=== PATIENT | male | born 1970 | race Caucasian/White ===

== ENCOUNTER 2020-06-26 15:50 | Outpatient (REF) | payer BC, SELFPAY ==
[2020-06-26 22:03] LABS: Calculated LDL 134 mg/dL (<100); Cholesterol 226 mg/dL (<200); HDL Cholesterol 72 mg/dL (40-60); Triglyceride 104 mg/dL (<150)
[2020-06-27 17:51] LABS: PSA, Screening 0.7 ng/mL (0.0-3.5)
== END 2020-06-26 15:51 | disposition home or self-care (01) ==
LOC: NCHCN 15:50
PROVIDERS: PCP Internal Medicine; Visit Provider Internal Medicine
DX: Z13.220 Encounter for screening for lipoid disorders (principal); Z12.5 Encounter for screening for malignant neoplasm of prostate
CPT/HCPCS: 80061; 84153

== ENCOUNTER 2021-07-02 09:31 | Outpatient (CLI) | payer BC, SELFPAY ==
--- NOTE | 2021-07-02 09:15 | DI.RAD_ITS ---
Exam(s) XR HIP LT COMPLETE AP PELVIS EXAM: XR HIP LT COMPLETE AP PELVIS CLINICAL HISTORY: left pain. TECHNIQUE: 2D digital imaging was performed. COMPARISON: No exams were available for comparison FINDINGS: Two views No evidence of fracture or dislocation. No hip joint space narrowing. Bone density normal. No osse ous lesions. Both ischial tuberosities appear unremarkable. IMPRESSION: No significant radiographic findings. DATA REPOSITORY: RADIATION DOSE DELIVERED:
== END 2021-07-02 09:32 | disposition home or self-care (01) ==
LOC: DIORS 09:31
PROVIDERS: PCP Internal Medicine; Referring Provider Internal Medicine; Visit Provider Student in an Organized Health Care Education/Training Program
DX: M79.605 Pain in left leg (principal); M25.552 Pain in left hip
CPT/HCPCS: 73502

== ENCOUNTER → 2021-10-22 01:17 | Outpatient (CLI) | payer BC, SELFPAY ==
--- NOTE | 2021-10-22 07:45 | DI.MRI_ITS ---
Exam(s) MR LOWER EXTREMITY LT WO EXAM: MR LOWER EXTREMITY LT WO CLINICAL HISTORY: Proximal hamstring rupture, ischial tuberosity to mid thigh, S76.312A. TECHNIQUE: Multiplanar multisequence MRI was performed. COMPARISON: No exams were available for comparison FINDINGS: MR examination of the thigh was performed according to the usual protocol. There is significant rima fact which degrades imaging through the plane of the conjoined tendon origin proximally. The conjoin ed tendon is not visualized clearly in its proximal extent. There is abnormal signal in the hamstrin g musculature in the distal thigh and tendons appear to terminate, although poorly visualized, at the mid thigh level. Findings are consistent with a proximal complete hamstring rupture with retraction to mid thigh level. No additional bony, tendinous, or muscular injury identified. IMPRESSION: Examination is technically limited but appears to show proximal complete hamstring rupture with retra ction into the mid thigh region. DATA REPOSITORY:
== END ==
PROVIDERS: PCP Internal Medicine; Visit Provider Student in an Organized Health Care Education/Training Program
DX: S76.312A Strain of muscle, fascia and tendon of the posterior muscle group at thigh level, left thigh, initial encounter (principal)
CPT/HCPCS: 73718

== ENCOUNTER 2022-06-16 06:48 | Day surgery (SDC) | payer BC, SELFPAY ==
[2022-06-16 06:50] VITALS: BP 121/89; PULSE 59; RESP 16; TEMP 36.2; O2SAT 98
[2022-06-16] MEDS: Lactated Ringers 1,000 ML 80 ML IV (07:21)
--- NOTE | 2022-06-16 07:42 | W.ANESPRE ---
General Info Date of Service Date Performed: 06/16/22 Height: 5 ft 10 in Weight: 83.4 kg Body Mass Index (BMI): 26.4 Surgical Procedure: Operation Date: 06/16/22 08:20 Proposed Procedure Side Surgeon p Colonoscopy Ventura Martínez MD Meds Allergies and Home Medications Allergies Allergy/AdvReac Type Severity Reaction Status Date / Time No Known Allergies Allergy Unverified 06/16/22 07:07 Home Medication Medication Instructions Recorded bisacodyl 5 mg tablet,delayed 5 mg PO ONCE colonscopy bowel prep 06/05/22 release (Dulcolax (bisacodyl)) #4 tabs polyethylene glycol 3350 17 238 g PO ONCE colonoscopy prep 06/05/22 gram/dose oral powder #238 grams Current Visit Medications: Current Medications Generic Name Dose Route Start Last Admin Trade Name Freq PRN Reason Stop Dose Admin Ringer's Solution 1,000 mls @ 80 mls/hr 06/16/22 06:00 06/16/22 07:21 IV 07/13/22 23:59 80 mls/hr INFUSION BRANDY Administration IV Miscellaneous Supplies 1 each 06/16/22 06:00 Iv Access IV 07/13/22 23:59 DIRECTED BRANDY Sodium Chloride 0 ml 06/16/22 06:00 Normal Saline Flush 10 Ml Syr IV 07/13/22 23:59 PRN PRN Sodium Chloride 0 ml 06/16/22 06:00 Normal Saline 10 Ml Vial IJ 07/13/22 23:59 DIRECTED PRN Sterile Water 0 ml 06/16/22 06:00 Water,Injection,Sterile 10 Ml Vial IJ 07/13/22 23:59 DIRECTED PRN PFSH Active Problems Active Problems: Problem Status Onset Code Complete rupture of left proximal hamstring tendon 09/19/20 S76.312A Pes anserinus bursitis of left knee M70.52 Medical History Medical History Marijuana use WILLIAM (obstructive sleep apnea) Stool guaiac positive (~10/21/21) Surgical History Surgical History History of surgery ganglion cyst removal Tobacco Smoking/Tobacco Use Status: Never Alcohol Alcohol Intake: current Alcohol intake frequency: a few times a week Substance Use Substance use: Occasionally Substance use type: marijuana Vital Signs and Lab Results Vital Signs Most Recent Vital Signs in EMR: Most Recent Vital Signs Temp Pulse Resp BP Pulse Ox 36.2 C L 59 L 16 121/89 98 06/16/22 06:50 06/16/22 06:50 06/16/22 06:50 06/16/22 06:50 06/16/22 06:50 Lab Results Blood Type / Crossmatch: No Data to Display Complete Blood Count: No Data to Display Complete Metabolic Panel: No Data to Display Liver Function Panel: No Data to Display Coagulation Panel: No Data to Display Cardiac Panel: No Data to Display Arterial Blood Gas: No Data to Display Venous Blood Gas: No Data to Display Pancreas Panel: No Data to Display Thyroid Panel: No Data to Display Infectious Disease: No Data to Display Blood Cultures: No Data to Display Toxicology Panel: No Data to Display Anesthesia Assessment and Plan Anesthesia History Personal History: No History of Anesthesia Complications Family History: No Family History of Anesthesia Complications Exercise Tolerance Exercise Tolerance: Metabolic Equivalents>4 Pertinent Negatives Pertinent Negatives: No Symptoms of GERD Cardiac & Pulmonary Exam Cardiac Exam: Normal S1/S2 Heart Sounds Pulmonary Exam: Clear Bilateral Breath Sounds Implantable Cardiac Device Does patient have a Pacemaker or an ICD?: No Airway Exam Known Difficult Airway: No Mallampati Class: 3 Mouth Opening: Normal (> 3cm) Thyromental Distance: Greater than 3 cm Neck Range of Motion: Full ROM Neck Circumference: Normal Teeth Condition: Normal Dentition ASA Classification ASA Score: ASA 1 Emergency Case?: No NPO Status NPO Status: NPO Clears >2 hours, Solids >8 hours Anesthesia Plan Resuscitation Status: Full Code Anesthesia Technique: General Anesthesia Airway Planned: Natural Airway Monitors Used: Standard Monitors Preoperative Comments:: In diagnosed but suspect WILLIAM
--- NOTE | 2022-06-16 08:04 | W.COLOREPORT ---
Date of service: 06/16/22 Time of Service: 08:04 Colonoscopy Report Procedure Description: Procedures performed: 1. Colonoscopy 2. Snare polypectomy x2 3. Fulguration/ablation/destruction of polyp x3 4. Endoscopic clip placement x5 5. Submucosal injection/tattoo Preoperative diagnosis: Screening colonoscopy Postoperative diagnosis: Surgeon: Cain Martínez Anesthesia: Negrete Indication for procedure: The patient is a 52-year-old man with no personal history of concern. He has no symptoms. He has a family history of colon cancer in an isolated grandparent. Findings: The terminal ileum was normal. In the descending colon at 45 cm was a large 2-3 cm pedunculated polyp. Hot snare was used to remove this polyp however the thickness of the stalk made it difficult to remove and the tip of the hot snare had to be used to cut the outside edges. Endoscopic clips were placed and used to approximate the mucosal defect which was left behind from the resection. The polyp was removed as a single, intact specimen. Submucosal injection was performed to tattoo the location. Another 10-12 mm sessile polyp was removed with hot snare technique from the sigmoid colon. 3 other small polyps in the rectum and sigmoid were ablated with the tip of the hot snare. No diverticular disease. No significant hemorrhoidal disease. Surveillance/follow-up recommendations: 6 months - 3 years. There is any dysplasia present in the polyp then the site should be reassessed for possible polyp regrowth in 6 months with a flexible sigmoidoscopy. As long as no dysplasia or atypia, then a repeat colonoscopy in 3 years is acceptable. If the polyp has cancer hiding in it, a follow-up discussion will be necessary to go over the risk/benefit of surgical resection. Complications: None Blood loss: Minimal Specimens:?? YES Quality of Prep:?? Excellent Procedure in detail: Written consent was obtained from the patient who was in agreement with the risks, benefits and indications of the procedure.? We went to the endoscopy suite and laid the patient in left lateral decubitus position.? Anesthesia was administered which was tolerated well.? A timeout was performed and when we are all in agreement we began the procedure. Digital rectal exam and visual examination was performed and within normal limits.? A well?lubricated colonoscope was advanced without difficulty all the way to the cecum identified by the ileocecal valve, and triangular folds and appendiceal orifice.? The ileocecal valve was briefly intubated and look normal. The scope was then slowly withdrawn.?? Retroflexion was performed in the rectum.? The findings/interventions are noted above. The scope was then removed and the patient tolerated the procedure well and was then taken back to the PACU in hemodynamically stable condition.
[2022-06-16 08:08] VITALS: BMI 26.4
--- NOTE | 2022-06-16 08:30 | BOWEL_PTH ---
PATIENT: Hever Larry LOC: [facility] U#:[id number] AGE/SX: 52/M ROOM: RE06/16/[address]: Ventura Martínez : 1970 BED: DIS: 06/16/2022 SPEC #: [id number] RECD: 06/16/22 12:41 STATUS: [facility]EENA RE #: [id number] DEANNE: 06/16/22 08:[address]: Ventura Martínez DEPT: Surgical Specimen RECD BY: Anabell Beltran ENTERED: 06/16/22 12:41 SP TYPE: Bowel OTHR DR: Car Mayer Tissues: 1 - BIOPSY BOWEL 2 - BIOPSY BOWEL Procedures: GROSS AND MICRO LEVEL 4 Comments: [id number]
[2022-06-16] MEDS: Endoscopic Tattoo 5 ML SYR IJ (09:04)
[2022-06-16 09:22] VITALS: BP 116/85; PULSE 53; RESP 16; TEMP 36; O2SAT 99
--- NOTE | 2022-06-16 09:40 | W.ANESPOSTOP ---
Postoperative Evaluation Date, Time and Location Date Performed: 06/16/22 Time Performed: : Patient Location: Day Surgery Unit Vital Signs Most Recent Imported Vital Signs: Most Recent Vital Signs Temp Pulse Resp BP Pulse Ox 36.0 C L 53 L 16 116/85 99 06/16/22 09:22 06/16/22 09:22 06/16/22 09:22 06/16/22 09:22 06/16/22 09:22 Pain Score Most Recent Pain Score: Most Recent Pain Score Pain Level 0 06/16/22 09:22 Assessment Mental Status: Awake (Alert & Oriented to Patient Baseline) Airway and Respiratory Function: Patent airway with normal (patient baseline) respiratory exam Cardiovascular Function: Hemodynamically Stable Hydration Status: Adequately Hydrated Nausea & Vomiting: No Nausea or Vomiting Pain: Pt. Denies Any Pain Peripheral Nerve Block: Patient did not receive a nerve block
[2022-06-16 10:00] VITALS: BP 123/80; PULSE 51; RESP 18; TEMP 36; O2SAT 100
== END 2022-06-16 10:20 | disposition home or self-care (01) ==
PROVIDERS: PCP Family Medicine; Visit Provider Student in an Organized Health Care Education/Training Program
PROC: 0DJD8ZZ Inspection of Lower Intestinal Tract, Via Natural or Artificial Opening Endoscopic (ICD-10-PCS; CPT 45378; principal; 2022-06-16 08:15)
DX: Z12.11 Encounter for screening for malignant neoplasm of colon (principal); K63.5 Polyp of colon; Z80.0 Family history of malignant neoplasm of digestive organs
CPT/HCPCS: 45381; 45388; 45385; 88305; J2704

== ENCOUNTER 2023-03-10 07:30 | Day surgery (SDC) | payer BC, SELFPAY ==
--- NOTE | 2023-03-09 17:34 | W.ANESPRE ---
General Info Date of Service Date Performed: 03/10/23 Height: 5 ft 10 in Weight: 82.554 kg Body Mass Index (BMI): 26.1 Surgical Procedure: Operation Date: 03/10/23 08:50 Proposed Procedure Side Surgeon p Colonoscopy Ventura Martínez MD Meds Allergies and Home Medications Allergies Allergy/AdvReac Type Severity Reaction Status Date / Time No Known Allergies Allergy Unverified 03/10/23 08:03 Home Medication Medication Instructions Recorded bisacodyl 5 mg tablet,delayed 5 mg PO ONCE Colonoscopy Bowel 01/22/23 release (Dulcolax (bisacodyl)) Prep #4 tabs polyethylene glycol 3350 17 238 g PO ONCE Colonoscopy Bowel 01/22/23 gram/dose oral powder Prep #238 grams Current Visit Medications: Current Medications Generic Name Dose Route Start Last Admin Trade Name Freq PRN Reason Stop Dose Admin Ringer's Solution 1,000 mls @ 80 mls/hr 03/10/23 06:00 IV 03/10/23 23:59 INFUSION BRANDY IV Miscellaneous Supplies 1 each 03/10/23 06:00 Iv Access IV 03/10/23 23:59 DIRECTED BRANDY Sodium Chloride 0 ml 03/10/23 06:00 Normal Saline Flush 10 Ml Syr IV 03/10/23 23:59 PRN PRN Sodium Chloride 0 ml 03/10/23 06:00 Normal Saline 10 Ml Vial IJ 03/10/23 23:59 DIRECTED PRN Sterile Water 0 ml 03/10/23 06:00 Water,Injection,Sterile 10 Ml Vial IJ 03/10/23 23:59 DIRECTED PRN PFSH Active Problems Active Problems: Problem Status Onset Code Pes anserinus bursitis of left knee M70.52 Complete rupture of left proximal hamstring tendon 09/19/20 S76.312A Medical History Medical History Stool guaiac positive (~10/21/21) Marijuana use WILLIAM (obstructive sleep apnea) Surgical History Surgical History History of surgery ganglion cyst removal Tobacco Smoking/Tobacco Use Status: Never Alcohol Alcohol Intake: current Alcohol intake frequency: a few times a week Substance Use Substance use: Daily Substance use type: marijuana Vital Signs and Lab Results Vital Signs Most Recent Vital Signs in EMR: Temp Pulse Resp BP Pulse Ox 36.3 C L 62 18 124/86 98 03/10/23 08:03 03/10/23 08:03 03/10/23 08:03 03/10/23 08:03 03/10/23 08:03 Lab Results Blood Type / Crossmatch: No Data to Display Complete Blood Count: No Data to Display Complete Metabolic Panel: No Data to Display Liver Function Panel: No Data to Display Coagulation Panel: No Data to Display Cardiac Panel: No Data to Display Arterial Blood Gas: No Data to Display Venous Blood Gas: No Data to Display Pancreas Panel: No Data to Display Thyroid Panel: No Data to Display Infectious Disease: No Data to Display Blood Cultures: No Data to Display Toxicology Panel: No Data to Display Anesthesia Assessment and Plan Anesthesia History Personal History: No History of Anesthesia Complications Family History: No Family History of Anesthesia Complications Exercise Tolerance Exercise Tolerance: Metabolic Equivalents>4 Cardiac & Pulmonary Exam Cardiac Exam: Normal S1/S2 Heart Sounds Pulmonary Exam: Clear Bilateral Breath Sounds Implantable Cardiac Device Does patient have a Pacemaker or an ICD?: No Airway Exam Known Difficult Airway: No Mallampati Class: 3 Mouth Opening: Normal (> 3cm) Thyromental Distance: Greater than 3 cm Neck Range of Motion: Full ROM Neck Circumference: Normal Teeth Condition: Normal Dentition ASA Classification ASA Score: ASA 2 Emergency Case?: No NPO Status NPO Status: NPO Clears >2 hours, Solids >8 hours Anesthesia Plan Resuscitation Status: Full Code Anesthesia Technique: General Anesthesia Airway Planned: Natural Airway Monitors Used: Standard Monitors Preoperative Comments:: 52 yo male for colo. Sig PMHx: WILLIAM, cannabis, occ EtOH. Previous Anes: - colo, prop, natural airway, obstructive pattern on EtCO2 noted, no issues.
[2023-03-10] MEDS: Lactated Ringers 1,000 ML 80 ML IV (08:00)
[2023-03-10 08:03] VITALS: BP 124/86; PULSE 62; RESP 18; TEMP 36.3; O2SAT 98
[2023-03-10 08:22] VITALS: BMI 26.1
--- NOTE | 2023-03-10 08:42 | W.SURGCON ---
Date of service: 03/10/23 Time of Service: 08:43 Assessment and Plan Assessment and plan (1) Tubulovillous adenoma of colon: Status: Acute Assessment and plan: 52-year-old man who had a high-grade dysplasia polyp removed from the descending colon and needs surveillance of the site. Overall plan: Sigmoidoscopy/colonoscopy History of Present Illness Narrative: Patient is a 52-year-old man well?known to me from about 9 months ago when we removed very large polyp from his descending colon. There was a tubulovillous adenoma with high-grade dysplasia in it. Margin resections were negative. He is not having any symptoms. PFSH All Active Problems (Updated 03/10/23 @ 08:44 by Ventura Martínez MD) Tubulovillous adenoma of colon (Acute) Pes anserinus bursitis of left knee (Acute) Complete rupture of left proximal hamstring tendon (Acute 09/19/20) Medical History (Updated 03/10/23 @ 08:44 by Ventura Martínez MD) Stool guaiac positive (~10/21/21) Marijuana use WILLIAM (obstructive sleep apnea) Surgical History History of surgery ganglion cyst removal Social History (Updated 01/22/23 @ 10:37 by JULIEN Gautam) Smoking/Tobacco Use Status: Never Smoking risk assessment performed?: Yes Alcohol Intake: current Alcohol Intake frequency: 0-2 drinks per day Alcohol type: beer Drug use: Daily Substance use type: marijuana Details: alcohol t-2 marijuana t-2 Housing: house Current gender identity: male Do you feel safe at home: Yes Do you feel safe in your relationship?: Yes Exam Narrative Exam Narrative: General: Nontoxic, comfortable and interactive Neuro: Alert and oriented x 3 Psych: Good mood and affect, good insight and understanding into his condition Chest: Nonlabored breathing, no wheezing Heart: Regular Results Last Vital Signs Temp 97.3 F L 03/10/23 08:03 Pulse 62 03/10/23 08:03 Resp 18 03/10/23 08:03 BP 124/86 03/10/23 08:03 Pulse Ox 98 03/10/23 08:03
--- NOTE | 2023-03-10 08:49 | W.COLOREPORT ---
Date of service: 03/10/23 Time of Service: 08:49 Colonoscopy Report Procedure Description: PROCEDURES PERFORMED: 1. Colonoscopy PREOPERATIVE DIAGNOSIS: Surveillance colonoscopy, advanced polyp POSTOPERATIVE DIAGNOSIS: No recurrent polyp, no new polyps SURGEON: Cain Martínez MD INDICATION for procedure: 52-year-old man without any symptoms had a colonoscopy 9 months ago and an advanced polyp was removed from his descending colon with high-grade dysplasia in it but negative resection margins. It was recommended to recheck the resection site. FINDINGS: No new polyps. No evidence of polyp recurrence at the tattoo site. Tattoo site at 45 cm SURVEILLANCE interval/FOLLOW-UP: 3 years for next complete colonoscopy SPECIMENS: yes EBL: Minimal COMPLICATIONS: None QUALITY of prep: Excellent Procedure in detail: The patient gave written consent and was in agreement with the indications, the potential risks as well as the benefits of the procedure. They taken to the endoscopy suite and laid in the left lateral decubitus position. A timeout was performed and anesthesia was administered which was tolerated well. I started the procedure. Digital rectal and visual examination was performed and grossly within normal limits. A well-lubricated flexible colonoscope was then introduced and passed without any notable difficulty all the way to the cecum identified by the ileocecal valve and the appendiceal orifice. The scope was then slowly withdrawn with the above-noted findings. The patient tolerated the procedure well and was taken to the PACU in hemodynamically stable condition.
--- NOTE | 2023-03-10 08:50 | W.PM.DSUDISC ---
Date of service: 03/10/23 Time of Service: 08:51 Discharge Plan Disposition Patient Disposition: Home Condition: Good Discharge Details Attending Provider: Ventura Martínez Primary Care Provider: Car Mayer Home Meds and New Rx's Prescriptions: No Action bisacodyl [Dulcolax (bisacodyl)] 5 mg tablet,delayed release (DR/EC) 5 mg PO ONCE Qty: 4 0RF Rx Instructions: Colonoscopy Bowel Prep- Per Instructions polyethylene glycol 3350 17 gram/dose powder 238 g PO ONCE Qty: 238 0RF Rx Instructions: Colonoscopy Bowel Prep- Per Instructions Discharge Instructions Additional Instructions: FINDINGS: No evidence of polyp regrowth. No new polyps were found. Repeat another colonoscopy in 3 years. Stand Alone Forms: Colonoscopy Post Instructions Activity:: Activity as Tolerated Diet:: As Tolerated Discharge Orders Discharge Orders: Discharge Order (Routine); Ordered 03/10/23 Ordered By: Ventura Martínez DS: Diagnosis Discharge Diagnosis (1) Tubulovillous adenoma of colon: Status: Acute
[2023-03-10 09:15] VITALS: BP 122/81; PULSE 62; RESP 16; TEMP 36.3; O2SAT 100
--- NOTE | 2023-03-10 09:19 | W.ANESPOSTOP ---
Postoperative Evaluation Date, Time and Location Date Performed: 03/10/23 Time Performed: 09:19 Patient Location: Day Surgery Unit Vital Signs Most Recent Imported Vital Signs: Most Recent Vital Signs Temp Pulse Resp BP Pulse Ox 36.3 C L 623 H 16 122/81 100 03/10/23 09:15 03/10/23 09:15 03/10/23 09:15 03/10/23 09:15 03/10/23 09:15 Pain Score Most Recent Pain Score: Most Recent Pain Score Pain Level 0 03/10/23 09:15 Assessment Mental Status: Awake (Alert & Oriented to Patient Baseline) Airway and Respiratory Function: Patent airway with normal (patient baseline) respiratory exam Cardiovascular Function: Hemodynamically Stable Hydration Status: Adequately Hydrated Nausea & Vomiting: No Nausea or Vomiting Pain: Pt. Denies Any Pain Peripheral Nerve Block: Patient did not receive a nerve block
[2023-03-10 09:46] VITALS: BP 132/88; PULSE 55; RESP 16; TEMP 36.3; O2SAT 99
== END 2023-03-10 10:05 | disposition home or self-care (01) ==
PROVIDERS: PCP Family Medicine; Visit Provider Student in an Organized Health Care Education/Training Program
PROC: 0DJD8ZZ Inspection of Lower Intestinal Tract, Via Natural or Artificial Opening Endoscopic (ICD-10-PCS; CPT 45378; principal; 2023-03-10 08:45)
DX: Z12.11 Encounter for screening for malignant neoplasm of colon (principal); Z86.010 Personal history of colon polyps; Z80.0 Family history of malignant neoplasm of digestive organs; F12.90 Cannabis use, unspecified, uncomplicated; F10.20 Alcohol dependence, uncomplicated
CPT/HCPCS: 45378; 00123; J2704

== ENCOUNTER 2023-12-02 12:21 | Outpatient (REF) | payer BC, SELFPAY ==
[2023-12-02 15:35] LABS: ALT 34 U/L (16-63); AST 27 U/L (15-37); Albumin 3.8 g/dL (3.4-5.0); Alkaline Phosphatase 73 U/L (46-116); Anion Gap 11.2 mmol/L (3-11); BUN 16 mg/dL (7-18); Bilirubin, Total 0.53 mg/dL (0.2-1.0); CO2 23.8 mmol/L (21.0-32.0); Calcium 9.4 mg/dL (8.5-10.1); Calculated LDL 133 mg/dL (<100); Chloride 107 mmol/L (98-107); Cholesterol 231 mg/dL (<200); Estimated GFR 88.88 (mL/min/1.73m2); Glucose 93 mg/dL (74-106); HDL Cholesterol 86 mg/dL (40-60); Potassium 4.7 mmol/L (3.5-5.1); Sodium 142 mmol/L (136-145); Total Protein 7.2 g/dL (6.4-8.2); Triglyceride 63 mg/dL (<150)
== END 2023-12-02 12:22 | disposition home or self-care (01) ==
LOC: NCHCN 12:21
PROVIDERS: PCP Family Medicine; Visit Provider Family Medicine
DX: E78.5 Hyperlipidemia, unspecified (principal)
CPT/HCPCS: 80053; 80061